=== PATIENT | female | born 2000 | race Caucasian/White ===

== ENCOUNTER 2022-08-01 13:47 | Emergency (ER) | payer BC, OTHER ==
[2022-08-01 14:03] VITALS: BP 107/67; PULSE 81; RESP 18; TEMP 99.6; BMI 23.6
== END 2022-08-01 15:36 | disposition home or self-care (01) ==
LOC: FER 13:47
DX: R09.89 Other specified symptoms and signs involving the circulatory and respiratory systems (principal)
CPT/HCPCS: 70490-TC; 84703; 99284-25